=== PATIENT | female | born 1965 | race Caucasian/White ===

== ENCOUNTER 2017-12-01 20:50 | Inpatient (IN) ==
[2017-12-02] MEDS ORDERED: Naloxone 0.4 MG/ML INJ IVP PRN (01:10)
[2017-12-02] MEDS ORDERED: Acetaminophen 325 MG TABLET PO PRN (01:10)
[2017-12-02] MEDS ORDERED: D5% in Water 1,000 ML IVC PRN (01:21)
[2017-12-02] MEDS ORDERED: *HR* Dextrose 50 % in Water (Syg) 50 ML SYRINGE IVP PRN (01:21)
[2017-12-02] MEDS ORDERED: Dextrose Gel 15 GM/37.5 ML TUBE PO PRN ×2 (01:21)
[2017-12-02] MEDS ORDERED: Insulin DETEMIR 100 UNIT/ML X5UNITS SQ SCH (01:30)
[2017-12-02] MEDS ORDERED: 0.9 % Sodium Chloride 1,000 ML IVC ONE ×3 (01:45→06:01)
[2017-12-02 01:55] LABS: Hematocrit 35.3 % (35.3-44.9); Hemoglobin 12.1 g/dL (11.5-15.4); Mean Corpuscular HGB Conc 34.3 g/dL (31.6-35.5); Mean Corpuscular Hemoglobin 31.4 pg (28.0-33.3); Mean Corpuscular Volume 91.7 fL (83.0-100.0); Mean Platelet Volume 9.9 fL (9.4-12.4); Platelet Count 358 K/mcL (140-400); Red Blood Count 3.85 M/mcL (3.82-4.97); Red Cell Distribution Width 12.4 % (11.5-14.5)
[2017-12-02 02:19] LABS: Calcium 8.2 mg/dL (8.6-10.3); Potassium 3.4 mEq/L (3.5-5.1)
[2017-12-02] MEDS: Insulin DETEMIR 100 UNIT/ML X5UNITS SQ SCH ×2 (02:35→20:53)
[2017-12-02] MEDS: *HR* Heparin 5,000 UNIT/ML VIAL SQ SCH ×2 (05:30→17:16)
[2017-12-02] MEDS: Insulin LISPRO 300 UNITS/3 ML VIAL SQ SCH ×3 (07:29→17:15)
--- NOTE | 2017-12-02 08:15 | Internal Med History&Physical ---
Date of Encounter: 12/02/17 Time of Encounter: 00:30 Internal Medicine - H&P: HPI Admitted From: Home Plans for Post Hospital Care: Home History of present illness: Ms. Clarke is a 52 year old female Patient is a transfer from [facility] for acute kidney injury and elevated blood glucose. She is a poorly controlled diabetic but not on insulin. She initially presented to the [place] ER for what she describes as heat stroke, after walking to the [employer]. She says that she became dizzy and had chest pain and thus wanted to be seen in the ER. She had never had chest pain before like this denies nausea and vomiting at that time. Night prior to going to the ER she does state that she vomited and had abdominal pain but she says that she has not eaten for 2 days because she has not felt hungry. Currently she feels hungry however. In the ER they gave her IV fluids, aspirin nitroglycerin and,And performed an EKG. EKG was normal sinus rhythm with no T wave elevations. QTC was 466 ms. she was transferred to [facility] for further management. Currently she denies chest pain, nausea and vomiting. Past Med Surg Social Fam HX - Past Medical History Medical history: arthritis, diabetes, hyperlipidemia, hypertension Psychiatric history: no psych history - Past Surgical History Surgical History: no surgical history Additional surgical history: LT SHOULDER SURGERY - Social History Smoking Status: Never smoker Smokeless Tobacco Status: No Alcohol use: none Drug use: none - Family History Mother Hx Family Cardiac Disorders: Yes Hx Family Endocrine Disorder: Yes (dm) Father Hx Family Cancer: Yes Internal Medicine - H&P: Meds Meloxicam [Mobic] 7.5 mg PO DAILY 11/20/17 [History] Alogliptin Benzoate [Alogliptin] 25 mg PO DAILY 12/02/17 [History] Atorvastatin Calcium [Lipitor] 20 mg PO HS 12/02/17 [History] GlipiZIDE [Glipizide ER] 10 mg PO DAILY 12/02/17 [History] Lisinopril [Zestril] 20 mg PO DAILY 12/02/17 [History] 3 Allergy/AdvReac Type Severity Reaction Status Date / Time bee venom protein (honey bee) Allergy Difficulty Verified 07/12/17 22:24 Breathing doxycycline Allergy Rash Verified 07/12/17 22:24 All Systems PM: A 10-system review of systems was performed and is negative for pertinent findings except as documented above in the HPI. - Constitutional Vitals: Temp Pulse Resp BP Pulse Ox 98.1 F 73 14 115/71 99 12/02/17 07:11 12/02/17 07:11 12/02/17 07:11 12/02/17 07:11 12/02/17 07:40 General appearance: Present: mild distress, A&O X 3, obese - Eye Eye exam: Present: EOMI, normal appearance - Respiratory Respiratory exam: Present: CTAB. Absent: respiratory distress, rhonchi - Cardiovascular Cardiovascular exam: Present: RRR. Absent: diastolic murmur, systolic murmur - GI/Abdominal GI/Abdominal exam: Present: normal bowel sounds. Absent: guarding, tenderness - Extremities Exam Extremities exam: Present: warm, radial pulses palpable and symmetrical. Absent : pedal edema, tenderness - Back Exam Back exam: Absent: CVA tenderness (L), CVA tenderness (R) - Neurological Exam Neurological exam: Present: oriented X3, no focal deficits. Absent: facial droop, speech deficit - Psychiatric Psychiatric exam: Present: normal affect, normal mood - Skin Skin exam: Present: dry, warm. Absent: rash Internal Med - H&P Results - Labs CBC & Chem 7: 12/02/17 01:40 12/02/17 01:40 Labs: Short CBC 12/02/17 Range/Units 01:40 WBC 8.5 (4.3-11.1) K/mcL Hgb 12.1 (11.5-15.4) g/dL Hct 35.3 (35.3-44.9) % Plt Count 358 (140-400) K/mcL [facility] 12/02/17 01:40 Sodium 139 D Potassium 3.4 L Chloride 109 H Carbon Dioxide 22 L BUN 59 H Creatinine 2.63 H Glucose 149 H Calcium 8.2 L Cardiac Enzymes 12/02/17 Range/Units 01:40 Troponin I < 0.03 (< 0.04) ng/mL - Assessment and plan (1) Acute kidney injury Current Visit: Yes Status: Acute Assessment and plan: Secondary to dehydration, patient states that she has been outside in the hot weather walking to the [employer] store. She denies prior kidney problems. Creatinine is elevated at 3.48. She does not have difficulty urinating, nor pain with urination. Patient has received 2 bolus of IV fluids, we will continue 2 additional boluses through the night and recheck BMP in the morning. (2) Dehydration Current Visit: No Status: Acute Assessment and plan: As stated above patient was outside and not adequately hydrating. She has also not been eating much lately. IV fluids as above. Follow up BMP in the AM. (3) Diabetes type 2, uncontrolled Current Visit: Yes Status: Acute Assessment and plan: Patient is a poorly controlled diabetic, last A1c in October was 10.6. She is not on insulin but does take Glipizide 10mg. Blood sugars are 490. We will give 10units of insulin levemir now and check sugars ACHS. Start patient on low insulin sliding scale with meals. Diabetes education in the morning. Qualifiers: Diabetes mellitus call manager insulin use: without call manager use Diabetes mellitus complication status: with hyperglycemia Qualified Code(s): E11.65 - Type 2 diabetes mellitus with hyperglycemia (4) Hyperglycemia due to type 2 diabetes mellitus Current Visit: Yes Status: Acute Assessment and plan: As above patient's blood sugar is elevated. She is poorly controlled diabetic. Will start long acting insulin tonight with 10 units of lantus Low dose insulin sliding scale Check sugars ACHS. Diabetes education in the morning. Qualifiers: Qualified Code(s): E11.65 - Type 2 diabetes mellitus with hyperglycemia (5) Chest pain Current Visit: No Status: Acute Assessment and plan: Resolved at time of exam. EKG was normal sinus rhythm with a rate of 76. QTc interval was 466ms. I did not note ST elevations. Continue to trend troponins initiated by [place] [facility]. Qualifiers: Qualified Code(s): R07.9 - Chest pain, unspecified - Time Spent With Patient Total time spent is greater than 50% in coordination of care (as documented) at patient's floor/unit and/or counseling patient: Greater than 35 minutes
[2017-12-02 14:57] LABS: Calcium 7.8 mg/dL (8.6-10.3); Magnesium 1.8 mg/dL (1.6-2.6); Potassium 3.5 mEq/L (3.5-5.1)
[2017-12-02] MEDS: 0.9 % Sodium Chloride 1,000 ML IVC SCH (19:43)
[2017-12-03 05:00] LABS: Basophils % 0.8 %; Eosinophils # 0.1 K/mcL (0.0-0.6); Eosinophils % 2.1 %; Hematocrit 32.2 % (35.3-44.9); Hemoglobin 10.6 g/dL (11.5-15.4); Immature Granulocytes % 0.2 % (0-4); Lymphocytes # 2.5 K/mcL (0.6-4.6); Lymphocytes % 48.4 %; Mean Corpuscular HGB Conc 32.9 g/dL (31.6-35.5); Mean Corpuscular Hemoglobin 30.5 pg (28.0-33.3); Mean Corpuscular Volume 92.8 fL (83.0-100.0); Mean Platelet Volume 10.3 fL (9.4-12.4); Monocytes # 0.3 K/mcL (0.0-1.3); Monocytes % 5.6 %; Neutrophils # 2.2 K/mcL (1.6-8.9); Platelet Count 302 K/mcL (140-400); Red Blood Count 3.47 M/mcL (3.82-4.97); Red Cell Distribution Width 12.6 % (11.5-14.5); Segmented Neutrophils % 42.9 %
[2017-12-03 05:16] LABS: BUN/Creatinine Ratio 36 (6-26); Blood Urea Nitrogen 30 mg/dL (6-20); Calcium 8.2 mg/dL (8.6-10.3); Carbon Dioxide 17 mEq/L (23-29); Chloride 115 mEq/L (98-107); Glucose 200 mg/dL (70-105); Osmolality,Calculated 302 (280-300); Potassium 3.2 mEq/L (3.5-5.1); Sodium 140 mEq/L (136-145); eGFR For African Americans > 60 (> 60); eGFR For Non-African Americans > 60 (> 60)
[2017-12-03] MEDS: 0.9 % Sodium Chloride 1,000 ML IVC SCH (05:55)
[2017-12-03] MEDS: *HR* Heparin 5,000 UNIT/ML VIAL SQ SCH ×2 (05:55→16:17)
[2017-12-03] MEDS: Insulin LISPRO 300 UNITS/3 ML VIAL SQ SCH ×3 (10:19→16:16)
[2017-12-03] MEDS: Insulin DETEMIR 100 UNIT/ML X5UNITS SQ SCH (20:17)
[2017-12-04] MEDS: *HR* Heparin 5,000 UNIT/ML VIAL SQ SCH ×2 (04:56→17:26)
[2017-12-04 05:29] LABS: Basophils # 0.1 K/mcL (0.0-0.2); Basophils % 0.8 %; Eosinophils # 0.1 K/mcL (0.0-0.6); Eosinophils % 1.7 %; Hematocrit 31.5 % (35.3-44.9); Hemoglobin 10.6 g/dL (11.5-15.4); Immature Granulocytes % 0.2 % (0-4); Lymphocytes # 2.9 K/mcL (0.6-4.6); Mean Corpuscular HGB Conc 33.7 g/dL (31.6-35.5); Mean Corpuscular Hemoglobin 30.5 pg (28.0-33.3); Mean Corpuscular Volume 90.8 fL (83.0-100.0); Mean Platelet Volume 10.2 fL (9.4-12.4); Monocytes # 0.3 K/mcL (0.0-1.3); Monocytes % 5.4 %; Neutrophils # 2.6 K/mcL (1.6-8.9); Platelet Count 309 K/mcL (140-400); Red Blood Count 3.47 M/mcL (3.82-4.97); Red Cell Distribution Width 12.7 % (11.5-14.5); Segmented Neutrophils % 43.9 %
[2017-12-04 05:46] LABS: BUN/Creatinine Ratio 22 (6-26); Blood Urea Nitrogen 15 mg/dL (6-20); Calcium 8.5 mg/dL (8.6-10.3); Carbon Dioxide 17 mEq/L (23-29); Chloride 116 mEq/L (98-107); Glucose 204 mg/dL (70-105); Osmolality,Calculated 299 (280-300); Potassium 3.8 mEq/L (3.5-5.1); Sodium 141 mEq/L (136-145); eGFR For African Americans > 60 (> 60); eGFR For Non-African Americans > 60 (> 60)
--- NOTE | 2017-12-04 05:55 | Internal Med Progress Note ---
Date of Encounter: 12/03/17 Time of Encounter: 18:00 - Assessment and plan (1) Acute kidney injury Current Visit: Yes Status: Acute (2) Diabetes type 2, uncontrolled Current Visit: Yes Status: Acute Qualifiers: Diabetes mellitus termite control service representative insulin use: without residential use Diabetes mellitus complication status: with hyperglycemia Qualified Code(s): E11.65 - Type 2 diabetes mellitus with hyperglycemia (3) Acute hypokalemia Current Visit: Yes Status: Acute (4) HTN (hypertension) Current Visit: Yes Status: Acute Qualifiers: Hypertension type: essential hypertension Qualified Code(s): I10 - Essential (primary) hypertension (5) HLD (hyperlipidemia) Current Visit: Yes Status: Acute Qualifiers: Hyperlipidemia type: unspecified Qualified Code(s): E78.5 - Hyperlipidemia , unspecified - Time Spent With Patient Total time spent is greater than 50% in coordination of care (as documented) at patient's floor/unit and/or counseling patient: 25 - 35 minutes - Subjective Interval history: .. The patient feels stronger. However, she is not able to ambulate on her own yet. Denies chest pain. Denies difficulty breathing, coughing and wheezing. Denies abdominal pain, nausea and vomiting. She makes fair amounts of urine. OBJECTIVE: .. See below.. ASSESSMENT AND PLAN: .. Acute kidney injury. Better. Her creatinine today is 0.84. Her bicarb is only 17. We will continue IV fluids. Type 2 diabetes mellitus, uncontrolled. Her oral hypoglycemics are on hold. We will continue insulin sliding scalewith Humalog. Acute hypokalemia. This is secondary to IV fluids she has received recently. We will give her supplemental potassium chloride (by mouth). Hypertension. Her lisinopril is on hold. Her blood pressure is under control at this time. Hyperlipidemia. I will restart her Lipitor, when she is medically stable. We will monitor her creatinine and potassium closely. - Constitutional Vitals: Temp Pulse Resp BP Pulse Ox 97.8 F 66 16 145/87 99 12/04/17 03:38 12/04/17 03:38 12/04/17 03:38 12/04/17 03:38 12/04/17 03:38 General appearance: Present: A&O X 3, no acute distress, answers questions appropriately - Respiratory Respiratory exam: Present: CTAB. Absent: accessory muscle use, rales, rhonchi, wheezes - Cardiovascular Cardiovascular exam: Present: RRR, +S1, +S2. Absent: diastolic murmur, gallop, rubs, systolic murmur - GI/Abdominal GI/Abdominal exam: Present: normal bowel sounds, soft, no peritoneal signs. Absent: distended, tenderness - Skin Skin exam: Present: dry, intact Internal Medicine: Result - Labs CBC & Chem 7: 12/04/17 05:13 12/05/17 03:12 Labs: Short CBC 12/04/17 Range/Units 05:13 WBC 5.9 (4.3-11.1) K/mcL Hgb 10.6 L (11.5-15.4) g/dL Hct 31.5 L (35.3-44.9) % Plt Count 309 (140-400) K/mcL Neutrophils # 2.6 (1.6-8.9) K/mcL BMP 12/04/17 05:13 Sodium 141 Potassium 3.8 Chloride 116 H Carbon Dioxide 17 L BUN 15 Creatinine 0.69 Glucose 204 H Calcium 8.5 L - VTE Deep Vein Thrombosis/Pulmonary Embolism Present on Admission: No Consult Discharge Plan - Plan Referrals: Francine Lakhani, BOX OFFICE MANAGER [Primary Care Provider] -
[2017-12-04] MEDS: Insulin LISPRO 300 UNITS/3 ML VIAL SQ SCH ×3 (09:02→17:25)
[2017-12-04] MEDS: *HR* SitaGLIPtin 25 MG TABLET PO SCH (17:26)
--- NOTE | 2017-12-04 23:42 | Internal Med Progress Note ---
Date of Encounter: 12/04/17 Time of Encounter: 23:42 - Assessment and plan (1) Acute kidney injury Current Visit: Yes Status: Acute (2) Diabetes type 2, uncontrolled Current Visit: Yes Status: Acute Qualifiers: Diabetes mellitus manager long term care insulin use: without halfway use Diabetes mellitus complication status: with hyperglycemia Qualified Code(s): E11.65 - Type 2 diabetes mellitus with hyperglycemia (3) Acute hypokalemia Current Visit: Yes Status: Acute (4) HTN (hypertension) Current Visit: Yes Status: Acute Qualifiers: Hypertension type: essential hypertension Qualified Code(s): I10 - Essential (primary) hypertension (5) HLD (hyperlipidemia) Current Visit: Yes Status: Acute Qualifiers: Hyperlipidemia type: unspecified Qualified Code(s): E78.5 - Hyperlipidemia , unspecified - Time Spent With Patient Total time spent is greater than 50% in coordination of care (as documented) at patient's floor/unit and/or counseling patient: 25 - 35 minutes - Subjective Interval history: .. She feels stronger. She started ambulating with assistance. Denies chest pain. Denies difficulty breathing, coughing and wheezing. Denies abdominal pain, nausea and vomiting. She makes good amounts of urine. OBJECTIVE: .. See below.. ASSESSMENT AND PLAN: .. Acute kidney injury. Secondary to dehydration. It was quite hot recently. She was not drinking enough fluids. Her creatinine is 0.69. Her bicarbonate remains relatively low17. We will continue IV fluids. Type 2 diabetes mellitus, uncontrolled. I am going to restart her oral hypoglycemics. We will continue Humalog sliding scale. Acute hypokalemia. Her potassium today is 3.8; was 3.2 yesterday. We will continue oral potassium chloride. I will give her extra dose of oral potassium chloride. Hypertension. Her blood pressure is under control. We will keep her Zestril on hold. Hyperlipidemia. Her Lipitor will be restarted at the time of discharge. We will check her electrolytes and magnesium in the morning. - Constitutional Vitals: Temp Pulse Resp BP Pulse Ox 98.3 F 74 16 151/94 99 12/04/17 20:21 12/04/17 20:21 12/04/17 20:21 12/04/17 20:21 12/04/17 20:21 General appearance: Present: A&O X 3, no acute distress, answers questions appropriately - Respiratory Respiratory exam: Present: CTAB. Absent: accessory muscle use, rales, rhonchi, wheezes - Cardiovascular Cardiovascular exam: Present: RRR, +S1, +S2. Absent: diastolic murmur, gallop, rubs, systolic murmur - GI/Abdominal GI/Abdominal exam: Present: normal bowel sounds, soft, no peritoneal signs. Absent: distended, tenderness - Skin Skin exam: Present: dry, intact Internal Medicine: Result - Labs CBC & Chem 7: 12/04/17 05:13 12/05/17 03:12 Labs: Short CBC 12/04/17 Range/Units 05:13 WBC 5.9 (4.3-11.1) K/mcL Hgb 10.6 L (11.5-15.4) g/dL Hct 31.5 L (35.3-44.9) % Plt Count 309 (140-400) K/mcL Neutrophils # 2.6 (1.6-8.9) K/mcL BMP 12/04/17 05:13 Sodium 141 Potassium 3.8 Chloride 116 H Carbon Dioxide 17 L BUN 15 Creatinine 0.69 Glucose 204 H Calcium 8.5 L Consult Discharge Plan - Plan Referrals: Francine Lakhani, ALARM INSTALLER [Primary Care Provider] -
[2017-12-05 04:07] LABS: Magnesium 1.3 mg/dL (1.6-2.6); Potassium 4.2 mEq/L (3.5-5.1)
[2017-12-05] MEDS: *HR* Heparin 5,000 UNIT/ML VIAL SQ SCH ×2 (06:01→18:40)
[2017-12-05] MEDS: *HR* SitaGLIPtin 25 MG TABLET PO SCH (08:17)
[2017-12-05] MEDS: Insulin LISPRO 300 UNITS/3 ML VIAL SQ SCH ×3 (08:18→18:30)
[2017-12-05] MEDS: *HR* GlipiZIDE 5 MG TABLET PO SCH (18:40)
--- NOTE | 2017-12-05 21:28 | Internal Med Progress Note ---
Date of Encounter: 12/05/17 Time of Encounter: 21:22 - Assessment and plan (1) Acute kidney injury Current Visit: Yes Status: Resolved (2) Diabetes type 2, uncontrolled Current Visit: Yes Status: Acute Qualifiers: Diabetes mellitus cardroom manager insulin use: without usp use Diabetes mellitus complication status: with hyperglycemia Qualified Code(s): E11.65 - Type 2 diabetes mellitus with hyperglycemia (3) Acute hypokalemia Current Visit: Yes Status: Acute (4) Hypomagnesemia Current Visit: Yes Status: Acute (5) HTN (hypertension) Current Visit: Yes Status: Acute Qualifiers: Hypertension type: essential hypertension Qualified Code(s): I10 - Essential (primary) hypertension (6) HLD (hyperlipidemia) Current Visit: Yes Status: Acute Qualifiers: Hyperlipidemia type: unspecified Qualified Code(s): E78.5 - Hyperlipidemia , unspecified - Time Spent With Patient Total time spent is greater than 50% in coordination of care (as documented) at patient's floor/unit and/or counseling patient: - Subjective Interval history: .. The patient feels pretty strong. She has normal appetite. Denies chest pain. Denies difficulty breathing, coughing and wheezing. Denies abdominal pain, nausea and vomiting. She makes good amounts of urine. OBJECTIVE: .. See below.. ASSESSMENT AND PLAN: .. Acute kidney injury. Secondary to dehydration. It was quite hot recently. She was not drinking enough fluids. Her creatinine is normal. Her bicarb is 24.It was 17 yesterday. Type 2 diabetes mellitus, uncontrolled. We restarted her oral hypoglycemics yesterday. We will continue Humalog sliding scale. I will do adjustments to her oral hypoglycemics tomorrow at the discharge. Acute hypokalemia. Her potassium today is 4.2. It was 3.8 yesterday. Hypomagnesemia. Her magnesium today is 1.3. It was 1.8 3 days ago.We will give her 4 g of IV magnesium sulfate. Hypertension. Her blood pressure is under control. We will keep her Zestril on hold. Hyperlipidemia. Her Lipitor will be restarted at the time of discharge. We will check her electrolytes and magnesium in the morning. She will likely go home tomorrow. - Constitutional Vitals: Temp Pulse Resp BP Pulse Ox 98 F 79 16 121/75 98 06/24/18 20:30 12/05/17 20:30 12/05/17 20:30 12/05/17 20:30 12/05/17 20:30 General appearance: Present: A&O X 3, no acute distress, answers questions appropriately - Respiratory Respiratory exam: Present: CTAB. Absent: accessory muscle use, rales, rhonchi, wheezes - Cardiovascular Cardiovascular exam: Present: RRR, +S1, +S2. Absent: diastolic murmur, gallop, rubs, systolic murmur - GI/Abdominal GI/Abdominal exam: Present: normal bowel sounds, soft, no peritoneal signs. Absent: distended, tenderness - Skin Skin exam: Present: dry, intact Internal Medicine: Result - Labs CBC & Chem 7: 12/04/17 05:13 12/05/17 03:12 Labs: BMP 12/05/17 03:12 Sodium 139 Potassium 4.2 Chloride 109 H Carbon Dioxide 24 - VTE Deep Vein Thrombosis/Pulmonary Embolism Present on Admission: No Consult Discharge Plan - Plan Referrals: Francine Lakhani CIGARETTE BOOK MAKER [Primary Care Provider] -
[2017-12-06 05:01] LABS: Magnesium 1.9 mg/dL (1.6-2.6); Potassium 4.4 mEq/L (3.5-5.1)
--- NOTE | 2017-12-06 06:14 | Discharge Summary ---
Date of Encounter: 12/06/17 Time of Encounter: 07:52 - Discharge Diagnosis (1) Acute kidney injury Priority: Primary Status: Resolved (2) Diabetes type 2, uncontrolled Priority: Secondary Status: Acute Qualifiers: Diabetes mellitus prison insulin use: without prison use Diabetes mellitus complication status: with hyperglycemia Qualified Code(s): E11.65 - Type 2 diabetes mellitus with hyperglycemia (3) Acute hypokalemia Priority: Secondary Status: Resolved (4) Hypomagnesemia Priority: Secondary Status: Resolved (5) HTN (hypertension) Priority: Secondary Status: Chronic Qualifiers: Hypertension type: essential hypertension Qualified Code(s): I10 - Essential (primary) hypertension (6) HLD (hyperlipidemia) Priority: Secondary Status: Chronic Qualifiers: Hyperlipidemia type: unspecified Qualified Code(s): E78.5 - Hyperlipidemia , unspecified Hospital course: Ms. Clarke is a 52 year old female. This patient is transferred from [place] emergency room. She was treated there for acute kidney injury/dehydration. She is a diabetic; had elevated glucose levels recently. He experienced appetite/decreased intake of by mouth fluids in the last couple days preceding her admission. She had diffuse abdominal pain and vomiting on the day preceding the admission. On the day of admission she felt like she had "a heat stroke". It was associated with anterior chest discomfort. Her blood tests done at admission to our hospital showed creatinine of 1.49 with a glucose of 149, potassium 3.4 and magnesium 1.8. She had normal troponins. She had normal EKG. She does not have any history of coronary artery disease. There is no history suggesting that problem. We treated her with IV fluids. We are not giving her lisinopril; was taking it at home. She felt definitely better by the time of discharge. Her last creatinine was 0.69. We treated her for acute hypokalemia/hypomagnesemia, likely secondary to IV fluids she received here. She feels good. Denies chest pain. Denies difficulty breathing. Denies abdominal pain, nausea and vomiting. She makes good amounts of urine. She goes home. Discharge discussed with: patient, nurse - Time Spent with Patient Total time spent providing and/or coordinating discharge services: Greater than 30 minutes (40 minutes) - Discharge Medications Home Medications: Meloxicam [Mobic] 7.5 mg PO DAILY 11/20/17 [History] Alogliptin Benzoate [Alogliptin] 25 mg PO DAILY 12/02/17 [History] Atorvastatin Calcium [Lipitor] 20 mg PO HS 12/02/17 [History] GlipiZIDE [Glipizide ER] 10 mg PO DAILY 12/02/17 [History] Lisinopril [Zestril] 10 mg PO DAILY #0 12/06/17 [Rx] Allergies/Adverse Reactions: 3 Allergy/AdvReac Type Severity Reaction Status Date / Time bee venom protein (honey bee) Allergy Difficulty Verified 12/02/17 09:14 Breathing doxycycline Allergy Rash Verified 12/02/17 09:14 Date of admission: 12/02/17 01:10 Primary care physician: Francine Lakhani CNP Consults: 12/02/17 01:21 Consult to Diabetes Education [CONS] Routine Comment: Reason for Consult: Poorly controlled diabetic, not on insulin. Last A1c was 10.6. Sugars in ER 490 Discharging clinician: Karlo Luna Anticipated date of discharge: 12/06/17 - Constitutional Vitals: Temp Pulse Resp BP Pulse Ox 98 F 68 16 117/80 97 12/06/17 04:37 12/06/17 04:37 12/06/17 04:37 12/06/17 04:37 12/06/17 04:37 General appearance: Present: A&O X 3, no acute distress, answers questions appropriately - Respiratory Respiratory exam: Present: CTAB. Absent: accessory muscle use, rales, rhonchi, wheezes - Cardiovascular Cardiovascular exam: Present: RRR, +S1, +S2. Absent: diastolic murmur, gallop, rubs, systolic murmur - GI/Abdominal GI/Abdominal exam: Present: normal bowel sounds, soft, no peritoneal signs. Absent: distended, tenderness - Patient Status Disposition: Home, Self-Care Condition: Good Functional capacity at discharge: independent ambulation - Discharge Instructions Instructions: Diabetes Mellitus Type 2 in Adults (DC) Follow Up With: Francine Lakhani CNP [Primary Care Provider] - 12/09/17 9:15 am - Diet and Activity Activity: resume usual activities as tolerated Diet: diabetic diet - VTE Deep Vein Thrombosis/Pulmonary Embolism Present on Admission: No
[2017-12-06] MEDS: *HR* Heparin 5,000 UNIT/ML VIAL SQ SCH (06:18)
[2017-12-06 07:05] VITALS: BP 135/88
[2017-12-06] MEDS: Insulin LISPRO 300 UNITS/3 ML VIAL SQ SCH (08:00)
[2017-12-06] MEDS: *HR* SitaGLIPtin 25 MG TABLET PO SCH (08:00)
[2017-12-06] MEDS: *HR* GlipiZIDE 5 MG TABLET PO SCH (08:00)
== END 2017-12-06 10:35 | disposition home or self-care (01) | DRG 469 ==
LOC: 2ANU → SUATTDRO 12-02 01:10
PROVIDERS: ADMIT Internal Medicine; ATTEND Internal Medicine